=== PATIENT | female | born 1995 | race Asian ===

== ENCOUNTER 2022-12-20 22:45 | Emergency (ER) | payer OTHER, SELFPAY ==
[2022-12-20 23:05] VITALS: BP 126/75; PULSE 85; RESP 16; TEMP 36.6; O2SAT 97; BMI 32.4
--- NOTE | 2022-12-20 23:39 | ED_ITS ---
HPI - Headache General Chief Complaint: Headache Stated Complaint: states cluster headache Time Seen by Provider: 12/20/22 23:35 Source: patient Mode of arrival: Ambulatory Limitations: no limitations History of Present Illness HPI Narrative: Patient otherwise healthy 27-year-old female. She states she does have history of migraines. Her stated complaint here in the emergency department is a cluster headache but she states that it is cluster to the right side of her head but she does have history of migraines. It started earlier today. No fevers. She did take some Tylenol prior to arrival but it did not help her headache much. No extremity numbness or tingling. Related Data Allergies Allergy/AdvReac Type Severity Reaction Status Date / Time No Known Drug Allergies Allergy Unverified 11/18/22 13:59 Review of Systems Constitutional Constitutional: Reports system reviewed and no additional complaints, except as documented Eyes Eyes: Reports system reviewed and no additional complaints, except as documented Musculoskeletal Musculoskeletal: Reports system reviewed and no additional complaints, except as documented Integumentary/Breasts Skin/Breast: Reports system reviewed and no additional complaints, except as documented Neurologic Neurologic: Reports system reviewed and no additional complaints, except as documented Patient History Social History Smoking Status: Never smoker Smoking Status: Never smoker alcohol intake frequency: 0-2 drinks per day Substance Use Type: does not use Exam Initial Vital Signs Initial Vital Signs: Vital Signs Temperature 97.8 F 12/20/22 23:05 Pulse Rate 85 12/20/22 23:05 Respiratory Rate 16 12/20/22 23:05 Blood Pressure 126/75 12/20/22 23:05 Pulse Oximetry 97 12/20/22 23:05 Oxygen Delivery Method Room Air 12/20/22 23:05 Const General: cooperative, comfortable and No ill appearing HENMT Head: normal to inspection and normocephalic Resp Effort & Inspection: normal respiratory effort Cardio Rate: regular rate Skin General: no rashes or lesions noted Neuro General: patient alert, patient awake and moves all extremities Extrem General: capillary refill normal Course Orders Ordered: Discontinued Medications Ibuprofen (Ibuprofen 400 Mg Tablet) 800 mg PO NOW ONE Stop: 12/20/22 23:36 Last Admin: 12/20/22 23:45 Dose: 800 mg Documented By: SHIRA Sumatriptan Succinate (Sumatriptan 6 Mg/0.5 Ml Vial) 6 mg SUBCUT NOW ONE Stop: 12/20/22 23:41 Last Admin: 12/21/22 00:11 Dose: 6 mg Documented By: SHIRA Vital Signs Vital signs: Vital Signs - 8 hr 12/20/22 23:05 Temperature 97.8 F Pulse Rate 85 Respiratory Rate 16 Blood Pressure 126/75 Pulse Oximetry 97 Oxygen Delivery Method Room Air MDM - Headache MDM Narrative Medical decision making narrative: After ibuprofen and Imitrex patient states that her headache went from a 7/10 to a 2/10. No fevers. Low suspicion for intracranial hemorrhage or meningitis.. No indication for any radiologic studies. Will discharge patient home with instructions to follow up with primary provider. Discharge Plan Departure Patient Disposition: Home Clinical Impression: Headache Instructions: DI for Headache Activity Restrictions/Additional Instructions: I recommend that you talk with the [facility] [place] [employer] to help establish a primary care doctor. Return to the emergency department for new sym ptoms. Stand Alone Forms: Patient Portal/API
[2022-12-20] MEDS: IBUPROFEN 400 MG TABLET 800 MG PO (23:45)
[2022-12-21] MEDS: SUMAtriptan 6 MG/0.5 ML VIAL SUBCUT (00:11)
[2022-12-21 00:53] VITALS: BP 124/74; PULSE 78; RESP 16; O2SAT 100
== END 2022-12-21 00:54 | disposition home or self-care (01) ==
PROVIDERS: Emergency Provider Emergency Medicine
DX: R51.9 Headache, unspecified (principal)
CPT/HCPCS: 96372; 99283; J3030

== ENCOUNTER → 2023-03-04 13:50 | Outpatient (CLI) | payer OTHER, SELFPAY ==
[2023-03-04 14:50] LABS: Add Manual Diff / Slide Review NO; Basophils Absolute Auto 0 /uL (0-100); Basophils Percent Auto 0.7 % (0-2); Eosinophils Absolute Auto 100 /uL (0-450); Eosinophils Percent Auto 1.1 % (2-4); Hemoglobin 13.5 g/dL (12.0-16.0); Lymphocytes Absolute Auto 2300 /uL (1100-4500); Mean Corpuscular HGB Conc 34.7 % (30-36); Mean Corpuscular Volume 83.5 fL (80-100); Monocytes Absolute Auto 400 /uL (0-900); Monocytes Percent Auto 6.6 % (3-14); Neutrophils Absolute Auto 3900 /uL (1500-7000); Neutrophils Percent Auto 57.6 % (50-75); Platelet Count 346 X10^3/uL (150-400); Red Blood Cell Count 4.68 X10^6/uL (4.0-5.2); Red Cell Distribution Width 13.2 % (11.6-14.8); White Blood Cell Count 6.7 X10^3/uL (4.5-11.0)
[2023-03-04 15:05] LABS: Alanine Aminotransferase 39 IU/L (<35); Albumin 4.2 g/dL (3.5-5.0); Albumin Globulin Ratio 1.3 (1.0-2.8); Alkaline Phosphatase 65 U/L (38-126); Aspartate Aminotransferase 31 IU/L (14-36); BUN Creatinine Ratio 11.5 (6-22); Bilirubin Total 0.5 mg/dL (0.2-1.3); Blood Urea Nitrogen 7 mg/dL (7-17); Calcium 9.6 mg/dL (8.4-10.2); Carbon Dioxide 30 mmol/L (22-32); Chloride 101 mmol/L (98-107); Cholesterol 169 mg/dL (140-199); Estimated Glomerular Filt Rate > 60 mL/min (>60); Globulin 3.3 g/dL (1.7-4.1); Glucose 96 mg/dL (70-100); HDL Cholesterol 66 mg/dL (40-60); HEMOLYSIS < 15 (0-50); LDL Cholesterol Calculated 86 mg/dL (<100); Potassium 4.1 mmol/L (3.4-5.1); Sodium 137 mmol/L (137-145); Total Protein 7.5 g/dL (6.3-8.2); Triglycerides 84 mg/dL (35-150)
[2023-03-04 15:33] LABS: TSH w/ Reflex to FT4 2.32 uIU/mL (0.47-4.68)
[2023-03-05 08:54] LABS: x Labcorp Estim. Avg Glu (eAG) 120 mg/dL (.); x Labcorp Hemoglobin A1c 5.8 % (4.8-5.6)
== END ==
PROVIDERS: PCP Family Medicine; Referring Provider Family Medicine; Visit Provider Family Medicine
DX: E28.2 Polycystic ovarian syndrome (principal); R73.03 Prediabetes; Z00.00 Encounter for general adult medical examination without abnormal findings
CPT/HCPCS: 36415; 80053; 80061; 83036; 84443; 85025

== ENCOUNTER 2023-05-16 10:19 | Emergency (ER) | payer OTHER, SELFPAY ==
[2023-05-16 10:29] VITALS: BP 126/77; PULSE 96; RESP 18; TEMP 36.6; O2SAT 99; BMI 32.4
--- NOTE | 2023-05-16 11:15 | ED_ITS ---
HPI - Extremity Injury (Upper) <Triston Joseph PA-C - Last Filed: 05/16/23 12:44> General Chief Complaint: Extremity Injury, Upper Stated Complaint: hurt at work/pinched by wheelchair Time Seen by Provider: 05/16/23 11:06 Source: patient Mode of arrival: Ambulatory History of Present Illness HPI narrative: 28-year-old female with past medical history PCOS, migraines, depression presents to the ED status post a right thumb injury sustained at work just prior to arrival. Patient states that she caught her right thumb nail caught in a wheelchair when she was trying to disengage the foot brake. Patient states that she saw some bleeding initially which was controlled with pressure. Patient endorses significant pain in the right thumb. Patient denies numbness, tingling, weakness. Patient endorses full range of motion. Tetanus is up-to-date. Related Data Previous Rx's Medication Instructions Recorded ibuprofen 800 mg tablet 800 mg PO Q8H PRN pain #30 tabs 03/04/23 spironolactone 25 mg tablet 25 mg PO DAILY #30 tabs 03/04/23 ondansetron 4 mg disintegrating 4 mg PO Q8H PRN nausea and 05/07/23 tablet vomiting #20 tabs scopolamine base 1 mg over 3 days 1 patch transdermal Q3D PRN motion 05/07/23 transdermal patch sickness #10 ea sumatriptan succinate 100 mg tablet See Rx Instructions PO .COMPLEX 05/07/23 #20 tabs Allergies Allergy/AdvReac Type Severity Reaction Status Date / Time No Known Drug Allergies Allergy Unverified 05/07/23 11:33 Review of Systems <Triston Joseph PA-C - Last Filed: 05/16/23 12:44> Constitutional Constitutional: Denies chills, Denies fatigue, Denies fever(s), Denies frequent falls, Denies lethargy and Denies weakness Eyes Eyes: Denies change in vision, Denies eye discharge, Denies irritation and Babar es loss of vision ENT Ears, Nose, Mouth, and Throat: Denies change in voice, Denies dizziness, Denies neck pain, Denies sore throat and Denies throat swelling Cardiovascular Cardiovascular: Denies chest pain, Denies irregular heart rhythm, Denies lightheadedness, Denies palpitations, Denies dyspnea, Denies dyspnea on exertion and Denies orthopnea Respiratory Respiratory: Denies cough, Denies dyspnea, Denies dyspnea on exertion and Denies wheezing Gastrointestinal Gastrointestinal: Denies abdominal pain, Denies change in bowel habits, Denies diarrhea, Denies nausea and Denies vomiting Musculoskeletal Musculoskeletal: Denies neck pain and Denies numbness Integumentary/Breasts Skin/Breast: Denies pruritus, Denies erythema, Denies rash and Denies wounds Comments: Right thumbnail injury Neurologic Neurologic: Denies behavioral changes, Denies confusion, Denies dizziness, Denies frequent falls, Denies loss of vision, Denies numbness and Denies weakness Psychiatric Psychiatric: Denies anxiety, Denies behavioral changes, Denies confusion, Denies depression, Denies homicidal ideation and Denies suicidal ideation Endocrine Endocrine: Denies fatigue, Denies flushing and Denies palpitations Hematologic/Lymphatic Hematologic/Lymphatic: Denies easy bruising Allergic/Immunologic Allergic/Immunologic: Denies urticaria, Denies throat swelling and Denies wheezing Patient History <Triston Joseph PA-C - Last Filed: 05/16/23 12:44> Medical History Preventative health care Depression Infertility PCOS (polycystic ovarian syndrome) Migraine headache Family History Father Diabetes mellitus Social History Smoking Status: Never smoker Smoking Status: Never smoker alcohol intake frequency: 0-2 drinks per day Substance Use Type: does not use Exam <Triston Joseph PA-C - Last Filed: 05/16/23 12:44> Narrative Exam Narrative: Const General:?cooperative, healthy appearing and comfortable [facility] Head:?normal to inspection Ears:?hearing grossly normal bilaterally Nose:?external nose normal Face and sinus:?normal facial exam and sinuses nontender Mouth:?oral mucosae normal Throat:?posterior oropharynx normal Eyes General:?appearance normal, both eyes and all related structures Neck Neck:?normal visual inspection and no lymphadenopathy noted Resp Effort & Inspection:?normal respiratory effort Auscultation:?clear to auscultation bilaterally Cardio Rate:?regular rate Rhythm:?regular rhythm Musculoskeletal/integumentary Right thumbnail appears to have been injured with the vertical break to the thumbnail down the middle. No bleeding noted on exam. There is full range of motion. Strength and sensation is intact. Patient is neurovascularly intact. Neuro General:?patient alert, patient awake and patient oriented x3 Initial Vital Signs Initial Vital Signs: Vital Signs Temperature 97.8 F 05/16/23 10:29 Pulse Rate 96 H 05/16/23 10:29 Respiratory Rate 18 05/16/23 10:29 Blood Pressure 126/77 05/16/23 10:29 Pulse Oximetry 99 05/16/23 10:29 Oxygen Delivery Method Room Air 05/16/23 10:29 <Corrina Pruitt DO - Last Filed: 05/20/23 00:38> Initial Vital Signs Initial Vital Signs: Vital Signs Temperature 97.8 F 05/16/23 10:29 Pulse Rate 96 H 05/16/23 10:29 Respiratory Rate 18 05/16/23 10:29 Blood Pressure 126/77 05/16/23 10:29 Pulse Oximetry 99 05/16/23 10:29 Oxygen Delivery Method Room Air 05/16/23 10:29 Course <Triston Joseph PA-C - Last Filed: 05/16/23 12:44> Orders Ordered: Discontinued Medications Ibuprofen (Ibuprofen 400 Mg Tablet) 800 mg PO NOW ONE Stop: 05/16/23 11:22 Last Admin: 05/16/23 11:46 Dose: 800 mg Documented By: NANCIE Vital Signs Vital signs: Vital Signs - 8 hr 05/16/23 10:29 Temperature 97.8 F Pulse Rate 96 H Respiratory Rate 18 Blood Pressure 126/77 Pulse Oximetry 99 Oxygen Delivery Method Room Air <Corrina Pruitt DO - Last Filed: 05/20/23 00:38> Orders Ordered: Discontinued Medications Ibuprofen (Ibuprofen 400 Mg Tablet) 800 mg PO NOW ONE Stop: 05/16/23 11:22 Last Admin: 05/16/23 11:46 Dose: 800 mg Documented By: KF Vital Signs Vital signs: Vital Signs - 8 hr 05/16/23 10:29 Temperature 97.8 F Pulse Rate 96 H Respiratory Rate 18 Blood Pressure 126/77 Pulse Oximetry 99 Oxygen Delivery Method Room Air MDM - Extremity Injury (Upper) <JANICE Lucero Last Filed: 05/16/23 12:44> MDM Narrative Medical decision making narrative: 28-year-old female with past medical history PCOS, migraines, depression pr esents to the ED status post a right thumb injury sustained at work just prior to arrival. Concern for fracture/dislocation versus thumbnail injury versus other. Will obtain x-ray, give ibuprofen for pain. X-ray without acute findings. Supportive care with ibuprofen, bandaging recommended. Recommend follow-up with PCP. ED return precautions discussed with patient. Patient verbalized understanding. Medical records reviewed: Yes Discharge Plan Departure Patient Disposition: Home Clinical Impression: Injury of right thumbnail Qualifiers: Encounter type: initial encounter Qualified Code(s): S69.91XA - Unspecified injury of right wrist, hand and finger(s), initial encounter Instructions: DI for Nail Avulsion Injury Activity Restrictions/Additional Instructions: You were evaluated in the ED today for a thumbnail injury. The x-ray did not show any fractures or dislocations. It appears that you have injured your thumbnail, it will heal as your thumb nail grows out. You may keep the injury bandaged for comfort. Please watch for signs of infection including worsening redness, swelling, discharge, warmth. Return to the ED if you note any signs of infection. Please follow-up with your PCP as soon as possible. You may take ibuprofen or Tylenol for pain. Prescriptions: No Action ibuprofen 800 mg tablet 800 mg PO Q8H PRN (Reason: pain) Qty: 30 1RF spironolactone 25 mg tablet 25 mg PO DAILY Qty: 30 2RF scopolamine base 1 mg over 3 days patch 3 day 1 patch transdermal Q3D PRN (Reason: motion sickness) Qty: 10 0RF ondansetron 4 mg tablet,disintegrating 4 mg PO Q8H PRN (Reason: nausea and vomiting) Qty: 20 1RF sumatriptan succinate 100 mg tablet See Rx Instructions PO .COMPLEX Qty: 20 1RF Rx Instructions: take 1 tab at onset of headache; if no relief, may repeat 1 tab after at least 2 hrs; max = 2 tabs/24 hrs PO Referrals: Rafael Negron DO [Primary Care Provider] - Stand Alone Forms: Patient Portal/API ED Sign-out <Corrina Pruitt DO - Last Filed: 05/20/23 00:38> Cosign ED Attending Beatriceature Attestation: I was immediately available in the department for consultation. Documentation has been reviewed.
--- NOTE | 2023-05-16 11:20 | DI.RAD.S_ITS ---
PROCEDURE: XR FINGER RT MIN 2V INDICATIONS: Thumbnail injury TECHNIQUE: AP hand, 2 views of the 1st finger(s) acquired. COMPARISON: None. FINDINGS: Bones: No fractures or dislocations. No suspicious bony lesions. Soft tissues: No suspicious soft tissue calcifications. IMPRESSION: No acute right thumb fracture or dislocation. Dictated by: Aidan Rodriguez M.D. on 05/16/2023 at 11:41 Approved by: Aidan Rodriguez M.D. on 05/16/2023 at 11:42
[2023-05-16] MEDS: IBUPROFEN 400 MG TABLET 800 MG PO (11:46)
== END 2023-05-16 12:10 | disposition home or self-care (01) ==
PROVIDERS: Emergency Provider Student in an Organized Health Care Education/Training Program; PCP Family Medicine
DX: S69.91XA Unspecified injury of right wrist, hand and finger(s), initial encounter (principal); X58.XXXA Exposure to other specified factors, initial encounter; Y99.0 Civilian activity done for income or pay
CPT/HCPCS: 73140; 99283

== ENCOUNTER → 2023-07-16 15:39 | Outpatient (CLI) | payer OTHER, SELFPAY | PROVIDERS: PCP Family Medicine; Referring Provider Family Medicine; Visit Provider Family Medicine | DX: Z23 Encounter for immunization (principal) | CPT/HCPCS: 90471; 90686 ==

== ENCOUNTER 2023-11-13 02:18 | Emergency (ER) | payer OTHER, SELFPAY ==
[2023-11-13] VITALS (9 sets, daily range): BP systolic 102–141; BP diastolic 58–80; PULSE 86–110; RESP 15–33; TEMP 36.9; O2SAT 95–100; BMI 33.1
--- NOTE | 2023-11-13 02:26 | DI.RAD.S_ITS ---
PROCEDURE: XR CHEST 1V INDICATIONS: PALPITATIONS TECHNIQUE: One view of the chest was acquired. COMPARISON: None. FINDINGS: Surgical changes and devices: None. Lungs and pleura: Lungs are clear. No pleural effusions or pneumothorax. Mediastinum: Mediastinal contours appear normal. Heart size is normal. Bones and chest wall: No suspicious bony lesions. Overlying soft tissues appear unremarkable. IMPRESSION: No acute cardiopulmonary abnormality is seen. This report is concordant with the overnight preliminary interpretation. Dictated by: Santo Briceño M.D. on 11/13/2023 at 8:17 Approved by: Santo Briceño M.D. on 11/13/2023 at 8:17
--- NOTE | 2023-11-13 02:26 | ED.ARRPALP ---
HPI - Arrhythmia/Palpitations General Chief Complaint: Arrhythmia/Palpitations Stated Complaint: fast heart rate Time Seen by Provider: 11/13/23 02:19 History of Present Illness HPI narrative: 28-year-old female presents from work for tachycardia. Patient was at work inset down when she felt her heartbeat quickly. 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 She was told to come down to the ER for evaluation. Patient states that she was intermittently felt palpitations and a fast heart rate for the last year. She has not seen her primary care physician for this issue. Reports briefly feeling short of breath before presenting to the ER, but denies that currently. Denies use of oral contraceptive agents, denies chest pain, leg swelling, history of blood clots. Related Data Previous Rx's Medication Instructions Recorded ibuprofen 800 mg tablet 800 mg PO Q8H PRN pain #30 tabs 03/04/23 spironolactone 25 mg tablet 25 mg PO DAILY #30 tabs 03/04/23 ondansetron 4 mg disintegrating 4 mg PO Q8H PRN nausea and 05/07/23 tablet vomiting #20 tabs scopolamine base 1 mg over 3 days 1 patch transdermal Q3D PRN motion 05/07/23 transdermal patch sickness #10 ea sumatriptan succinate 100 mg tablet See Rx Instructions PO .COMPLEX 05/07/23 #20 tabs Allergies Allergy/AdvReac Type Severity Reaction Status Date / Time No Known Drug Allergies Allergy Unverified 05/07/23 11:33 Review of Systems Review of Systems Narrative: See HPI Patient History Medical History Preventative health care Depression Infertility PCOS (polycystic ovarian syndrome) Migraine headache Family History Father Diabetes mellitus Social History Smoking Status: Never smoker Smoking Status: Never smoker alcohol intake frequency: 0-2 drinks per day Substance Use Type: does not use Exam Initial Vital Signs Initial Vital Signs: Vital Signs Temperature 98.5 F 11/13/23 02:23 Pulse Rate 106 H 11/13/23 02:23 Respiratory Rate 18 11/13/23 02:23 Blood Pressure 141/80 H 11/13/23 02:23 Pulse Oximetry 100 11/13/23 02:23 Oxygen Delivery Method Room Air 11/13/23 02:23 Const: Awake, alert, no acute distress, nontoxic appearing Cardiac: Tachycardia, regular rhythm RESP: unlabored, clear bilaterally, no wheezing GI: Soft, nontender, nondistended, no rebound, no guarding MSK: Atraumatic, full range of motion, pulses equal Skin: Warm, Dry, intact, no rashes Neuro: AO x3, CN II-XII grossly intact, moves all extremities Course Orders Ordered: ED Orders 11/13/23 02:26 Chest [XR chest 1V] Stat EKG-12 Lead Stat 11/13/23 02:33 CBC Auto Diff [Complete Blood Count AUTO DIFF] Stat CMP [Comprehensive Metabolic Panel] Stat TSH [Thyroid Stimulating Hormone] Stat Vital Signs Vital signs: Vital Signs - 8 hr 11/13/23 02:23 11/13/23 02:38 11/13/23 02:45 Temperature 98.5 F Pulse Rate 106 H 110 H 102 H Respiratory Rate 18 28 H 25 H Blood Pressure 141/80 H Pulse Oximetry 100 100 100 Oxygen Delivery Method Room Air 11/13/23 03:00 11/13/23 03:00 11/13/23 03:15 Temperature Pulse Rate 96 H 86 Respiratory Rate 21 15 Blood Pressure 106/59 L Pulse Oximetry 99 100 Oxygen Delivery Method 11/13/23 03:30 11/13/23 03:30 11/13/23 03:45 Temperature Pulse Rate 97 H 98 H Respiratory Rate 16 33 H Blood Pressure 102/58 L Pulse Oximetry 100 95 Oxygen Delivery Method 11/13/23 04:21 Temperature Pulse Rate 96 H Respiratory Rate 16 Blood Pressure 103/72 Pulse Oximetry 98 Oxygen Delivery Method MDM - Arrhythmia/Palpitations Differential Diagnosis Differential diagnosis: Likely palpitations, sinus tachycardia and artial fibrillation Lab Data 11/13/23 02:33 11/13/23 02:33 Labs: Lab Results 11/13/23 Range/Units 02:33 WBC 9.3 (4.5-11.0) X10^3/uL RBC 4.98 (4.0-5.2) X10^6/uL Hgb 14.2 (12.0-16.0) g/dL Hct 41.4 (36-46) % MCV 83.3 (80-100) fL MCH 28.5 (26-34) PG MCHC 34.2 (30-36) % RDW 13.0 (11.6-14.8) % Plt Count 336 (150-400) X10^3/uL Neut % (Auto) 52.5 (50-75) % Lymph % (Auto) 38.2 (25-40) % [place] % (Auto) 7.1 (3-14) % Eos % (Auto) 1.5 L (2-4) % Baso % (Auto) 0.7 (0-2) % Neut # (Auto) 4900 (3529-9056) /uL Lymph # (Auto) 3600 (3516-0246) /uL [place] # (Auto) 700 (0-900) /uL Eos # (Auto) 100 (0-450) /uL Baso # (Auto) 100 (0-100) /uL Sodium 141 (137-145) mmol/L Potassium 3.6 (3.4-5.1) mmol/L Chloride 103 (98-107) mmol/L Carbon Dioxide 30 (22-32) mmol/L BUN 7 (7-17) mg/dL Creatinine 0.71 (0.52-1.04) mg/dL Estimated GFR > 60 (>60) mL/min BUN/Creatinine Ratio 9.9 (6-22) Glucose 130 H (70-100) mg/dL Calcium 9.6 (8.4-10.2) mg/dL Total Bilirubin 0.4 (0.2-1.3) mg/dL AST 29 (14-36) IU/L ALT 33 (<35) IU/L Alkaline Phosphatase 63 (38-126) U/L Total Protein 8.5 H (6.3-8.2) g/dL Albumin 4.8 (3.5-5.0) g/dL Globulin 3.7 (1.7-4.1) g/dL Albumin/Globulin Ratio 1.3 (1.0-2.8) TSH 3.62 (0.47-4.68) uIU/mL ECG Data Interpretation: Sinus tachycardia at 101 beats per minute. Normal axis, no ST T wave changes MDM Narrative Medical decision making narrative: Well-appearing patient with incidentally found sinus tachycardia at work. Patient states that she has had intermittent tachycardia for the last year but has not been evaluated for this condition previously. Currently only complaint is mild lightheadedness. Patient initially 130 beats per minute on monitor car operator, however this quickly decreases to 90-100 beats per minute without any intervention when patient was sitting in ED bed. Laboratory work is reviewed and unremarkable. Electrolytes are within normal limits, TSH within normal limits. Patient's heart rate has remained between 90-100 beats per minute. Blood pressure on lower limits of normal with map 70-75, but blood pressure 100s/70s. Patient informed of all lab and imaging findings, offered to start patient on a low-dose beta-chandler if her tachycardia and palpitations are very bothersome, however I did note that her blood pressure was on the lower limits of normal and starting a beta-chandler may decrease her blood pressure further. Patient stated that she will follow up with her primary care physician and discuss possible options going forward. Discharge Plan Departure Patient Disposition: Home Clinical Impression: Sinus tachycardia Instructions: DI for Palpitations Activity Restrictions/Additional Instructions: When you 1st came in your heart rate was in the 120s, however with rest it dropped into the 90s. Your laboratory work is normal, with normal electrolytes and normal thyroid panel. We discussed possibly starting a heart rate medication, however you decided to follow up with your primary care doctor, which I feel is reasonable. Call your primary care doctor for the next available appointment to potentially discuss either starting a new medication or possibly having a heart monitor placed. Prescriptions: No Action ibuprofen 800 mg tablet 800 mg PO Q8H PRN (Reason: pain) Qty: 30 1RF spironolactone 25 mg tablet 25 mg PO DAILY Qty: 30 2RF scopolamine base 1 mg over 3 days patch 3 day 1 patch transdermal Q3D PRN (Reason: motion sickness) Qty: 10 0RF ondansetron 4 mg tablet,disintegrating 4 mg PO Q8H PRN (Reason: nausea and vomiting) Qty: 20 1RF sumatriptan succinate 100 mg tablet See Rx Instructions PO .COMPLEX Qty: 20 1RF Rx Instructions: take 1 tab at onset of headache; if no relief, may repeat 1 tab after at least 2 hrs; max = 2 tabs/24 hrs PO Referrals: Rafael Negron, [Primary Care Provider] - Stand Alone Forms: Patient Portal/API
[2023-11-13 02:38] LABS: Add Manual Diff / Slide Review NO; Basophils Absolute Auto 100 /uL (0-100); Basophils Percent Auto 0.7 % (0-2); Eosinophils Absolute Auto 100 /uL (0-450); Eosinophils Percent Auto 1.5 % (2-4); Hematocrit 41.4 % (36-46); Hemoglobin 14.2 g/dL (12.0-16.0); Lymphocytes Absolute Auto 3600 /uL (1100-4500); Lymphocytes Percent Auto 38.2 % (25-40); Mean Corpuscular HGB Conc 34.2 % (30-36); Mean Corpuscular Hemoglobin 28.5 PG (26-34); Mean Corpuscular Volume 83.3 fL (80-100); Monocytes Absolute Auto 700 /uL (0-900); Monocytes Percent Auto 7.1 % (3-14); Neutrophils Absolute Auto 4900 /uL (1500-7000); Neutrophils Percent Auto 52.5 % (50-75); Platelet Count 336 X10^3/uL (150-400); Red Blood Cell Count 4.98 X10^6/uL (4.0-5.2); White Blood Cell Count 9.3 X10^3/uL (4.5-11.0)
[2023-11-13 02:50] LABS: Alanine Aminotransferase 33 IU/L (<35); Albumin 4.8 g/dL (3.5-5.0); Albumin Globulin Ratio 1.3 (1.0-2.8); Alkaline Phosphatase 63 U/L (38-126); Aspartate Aminotransferase 29 IU/L (14-36); BUN Creatinine Ratio 9.9 (6-22); Bilirubin Total 0.4 mg/dL (0.2-1.3); Blood Urea Nitrogen 7 mg/dL (7-17); Calcium 9.6 mg/dL (8.4-10.2); Carbon Dioxide 30 mmol/L (22-32); Chloride 103 mmol/L (98-107); Estimated Glomerular Filt Rate > 60 mL/min (>60); Globulin 3.7 g/dL (1.7-4.1); Glucose 130 mg/dL (70-100); HEMOLYSIS < 15 (0-50); Potassium 3.6 mmol/L (3.4-5.1); Sodium 141 mmol/L (137-145); Total Protein 8.5 g/dL (6.3-8.2)
[2023-11-13 03:36] LABS: Thyroid Stimulating Hormone 3.62 uIU/mL (0.47-4.68)
== END 2023-11-13 04:26 | disposition home or self-care (01) ==
PROVIDERS: Emergency Provider Emergency Medicine; PCP Family Medicine
DX: R00.0 Tachycardia, unspecified (principal)
CPT/HCPCS: 36415; 71045; 80053; 84443; 85025; 93005; 99283; 99284

== ENCOUNTER → 2023-12-08 10:24 | Outpatient (CLI) | payer OTHER, SELFPAY ==
--- NOTE | 2023-12-08 10:25 | DI.MRI.S_ITS ---
PROCEDURE: MR HEAD/BRAIN WO CON INDICATIONS: Migraine TECHNIQUE: Noncontrast axial T1 spin echo, axial T2 fast spin echo, sagittal and axial FLAIR, coronal T2 fast spin echo, axial gradient echo, axial diffusion and ADC through the brain. COMPARISON: None. FINDINGS: Image quality: Excellent. CSF Spaces: Basal cisterns are patent. No extra-axial fluid collections. Ventricles are normal in size and shape. Brain: No intracranial masses or hemorrhage. Blue/white matter interface is normal. Brainstem appears normal. Diffusion-weighted images demonstrate no acute infarct. No chronic ischemic insults. Normal intravascular flow voids are present. Skull and face: Calvarium has normal marrow signal. Orbits appear normal. Sinuses: Sinuses and mastoids are clear. IMPRESSION: 1. No acute intracranial process. Dictated by: Ginger Parker M.D. on 12/09/2023 at 15:40 Approved by: Ginger Parker M.D. on 12/09/2023 at 15:40
== END ==
LOC: MRI 10:24
PROVIDERS: PCP Family Medicine; Referring Provider Nurse Practitioner Family; Visit Provider Nurse Practitioner Family
DX: G43.909 Migraine, unspecified, not intractable, without status migrainosus (principal)
CPT/HCPCS: 70551

== ENCOUNTER 2024-02-03 04:46 | Emergency (ER) | payer OTHER, SELFPAY ==
[2024-02-03 04:58] VITALS: BP 126/81; PULSE 95; RESP 16; O2SAT 100; BMI 32.5
[2024-02-03 05:01] VITALS: BP 128/93; PULSE 91; RESP 16; TEMP 36.8; O2SAT 99; BMI 32.5
[2024-02-03 05:48] LABS: Appearance Urine UA CLOUDY; Bilirubin Urine UA NEGATIVE (NEGATIVE); Color Urine UA YELLOW; Glucose Urine UA NEGATIVE (Negative); Ketones Urine UA NEGATIVE (NEGATIVE); Leukocyte Esterase Urine UA 3+ (NEGATIVE); Nitrite Urine UA NEGATIVE (Negative); Occult Blood Urine UA 3+ (Negative); Protein Urine UA NEGATIVE (Negative); Specific Gravity Urine UA <=1.005 (1.000-1.035); Urobilinogen Urine UA 0.2 E.U./dL (0.2)
[2024-02-03 05:51] LABS: pH Urine UA 6.5 (4.5-8.0)
[2024-02-03 05:57] LABS: Bacteria Urine Few (2-10); Culture Indicated Urine Specimen Cultured; RBC Urine 0-1/HPF (0-5/HPF); Squamous Epithelial Cell Urine 0-1 /HPF (0-5/HPF); Urine Volume 10mL (spun); WBC Urine 10-30/HPF (0-5/HPF)
--- NOTE | 2024-02-03 06:03 | ED_ITS ---
HPI - Female Genitourinary General Chief complaint: Urogenital-Male Stated complaint: uti Time Seen by Provider: 02/03/24 04:49 Source: patient Mode of arrival: Ambulatory History of Present Illness HPI Narrative: 29-year-old female presents for urinary frequency and dysuria for 2 days. Took azo yesterday, which briefly helped her symptoms, but overnight her symptoms worsened and she was here for evaluation. Has not had recent urinary tract infection, has not been on antibiotics in the last 30 days. Related Data Previous Rx's Medication Instructions Recorded ibuprofen 800 mg tablet 800 mg PO Q8H PRN pain #30 tabs 03/04/23 spironolactone 25 mg tablet 25 mg PO DAILY #30 tabs 03/04/23 ondansetron 4 mg disintegrating 4 mg PO Q8H PRN nausea and 05/07/23 tablet vomiting #20 tabs scopolamine base 1 mg over 3 days 1 patch transdermal Q3D PRN motion 05/07/23 transdermal patch sickness #10 ea sumatriptan succinate 100 mg tablet See Rx Instructions PO .COMPLEX 05/07/23 #20 tabs cephalexin 500 mg capsule 500 mg PO Q12H #10 caps 02/03/24 Allergies Allergy/AdvReac Type Severity Reaction Status Date / Time No Known Drug Allergies Allergy Unverified 05/07/23 11:33 Patient History Medical History Preventative health care Depression Infertility PCOS (polycystic ovarian syndrome) Migraine headache Family History Father Diabetes mellitus alcohol intake frequency: 0-2 drinks per day Substance Use Type: does not use Exam Initial Vital Signs Initial Vital Signs: Vital Signs Pulse Rate 95 H 02/03/24 04:58 Respiratory Rate 16 02/03/24 04:58 Blood Pressure 126/81 02/03/24 04:58 Pulse Oximetry 100 02/03/24 04:58 Oxygen Delivery Method Room Air 02/03/24 04:58 Const: Awake, alert, no acute distress, nontoxic appearing Skin: Warm, Dry, intact, no rashes Neuro: AO x3, CN II-XII grossly intact, moves all extremities Course Orders Ordered: ED Orders 02/03/24 04:53 Urinalysis and Microscopic Stat Urine Culture Stat Vital Signs Vital signs: Vital Signs - 8 hr 02/03/24 04:58 02/03/24 05:01 02/03/24 06:17 Temperature 98.3 F 98.1 F Pulse Rate 95 H 91 H 78 Respiratory Rate 16 16 20 Blood Pressure 126/81 128/93 H Blood Pressure [Left Arm] 127/69 Pulse Oximetry 100 99 97 Oxygen Delivery Method Room Air Room Air Room Air MDM - Female Genitourinary Lab Data Labs: Lab Results 02/03/24 Range/Units 04:53 Urine Color Yellow Urine Appearance Cloudy Urine pH 6.5 (4.5-8.0) Ur Specific [place] <=1.005 (1.000-1.035) Urine Protein Negative (Negative) Urine Glucose (UA) Negative (Negative) g/dL Urine Ketones Negative (NEGATIVE) Urine Occult Blood 3+ H (Negative) Urine Nitrate Negative (Negative) Urine Bilirubin Negative (NEGATIVE) Urine Urobilinogen 0.2 (0.2) E.U./dL Ur Leukocyte Esterase 3+ H (NEGATIVE) Urine RBC 0-1/hpf (0-5/HPF) Urine WBC 10-30/hpf H (0-5/HPF) Ur Squamous Epith Cells 0-1 /hpf (0-5/HPF) Urine Bacteria Few (2-10) H (None) Ur Culture Indicated? Specimen cultured Vol Urine Centrifuged 10ml (spun) Point of Care Testing Test Results Negative Urine Dip Bedside Urine Glucose Negative Bedside Urine Bilirubin - Negative Bedside Urine Ketone - Negative Urine Specific [place] 1.000 Bedside Urine Occult Blood +++ Bedside Urine pH 6.0 Bedside Urine Protein - Negative Bedside Urine Urobilinogen - Negative Bedside Urine Nitrite - Negative Bedside Urine Leukocytes +++ 500 Esterase MDM Narrative Medical decision making narrative: Urinary tract infection. Antibiotics sent to pharmacy of choice. Discharge Plan Departure Patient Disposition: Home Clinical Impression: UTI (urinary tract infection) Instructions: DI for Urinary Tract Infection (UTI) Activity Restrictions/Additional Instructions: Finish all antibiotics as prescribed. Follow up with your primary care doctor as needed Prescriptions: New cephalexin 500 mg capsule 500 mg PO Q12H Qty: 10 0RF No Action ibuprofen 800 mg tablet 800 mg PO Q8H PRN (Reason: pain) Qty: 30 1RF spironolactone 25 mg tablet 25 mg PO DAILY Qty: 30 2RF scopolamine base 1 mg over 3 days patch 3 day 1 patch transdermal Q3D PRN (Reason: motion sickness) Qty: 10 0RF ondansetron 4 mg tablet,disintegrating 4 mg PO Q8H PRN (Reason: nausea and vomiting) Qty: 20 1RF sumatriptan succinate 100 mg tablet See Rx Instructions PO .COMPLEX Qty: 20 1RF Rx Instructions: take 1 tab at onset of headache; if no relief, may repeat 1 tab after at least 2 hrs; max = 2 tabs/24 hrs PO Referrals: Rafael Negron DO [Primary Care Provider] - Stand Alone Forms: Patient Portal/API
[2024-02-03 06:17] VITALS: BP 127/69; PULSE 78; RESP 20; TEMP 36.7; O2SAT 97
== END 2024-02-03 06:24 | disposition home or self-care (01) ==
PROVIDERS: Emergency Provider Emergency Medicine; PCP Family Medicine
DX: N39.0 Urinary tract infection, site not specified (principal)
CPT/HCPCS: 81001; 81003; 81025; 87077; 87086; 87186; 99282

== ENCOUNTER → 2024-05-20 17:58 | Outpatient (CLI) | payer OTHER, SELFPAY | PROVIDERS: PCP Family Medicine; Referring Provider Internal Medicine; Visit Provider Internal Medicine | DX: Z23 Encounter for immunization (principal) | CPT/HCPCS: 90471; 90656 ==

== ENCOUNTER 2024-08-16 19:23 | Emergency (ER) | payer OTHER, SELFPAY ==
[2024-08-16 19:33] VITALS: BP 123/84; PULSE 85; RESP 17; TEMP 36.3; O2SAT 97; BMI 32.5
--- NOTE | 2024-08-16 22:12 | ED_ITS ---
HPI - Headache General Chief Complaint: Headache Stated Complaint: 8hr headache; hx of headache/migraines Time Seen by Provider: 08/16/24 22:12 Mode of arrival: Ambulatory History of Present Illness HPI Narrative: 29-year-old female with history of recurrent headaches, has taken sumatriptan in the past, left retro-orbital and bifrontal forehead area discomfort, no trauma or injury. Some photophobia with light. No neck pain. No nausea or vomiting. No fevers or chills. No recent illness symptoms. No focal weakness to face arm or leg. No focal numbness to face arm or leg. Related Data Previous Rx's Medication Instructions Recorded ibuprofen 800 mg tablet 800 mg PO Q8H PRN pain #30 tabs 03/04/23 spironolactone 25 mg tablet 25 mg PO DAILY #30 tabs 03/04/23 ondansetron 4 mg disintegrating 4 mg PO Q8H PRN nausea and 05/07/23 tablet vomiting #20 tabs scopolamine base 1 mg over 3 days 1 patch transdermal Q3D PRN motion 05/07/23 transdermal patch sickness #10 ea sumatriptan succinate 100 mg tablet See Rx Instructions PO .COMPLEX 05/07/23 #20 tabs cephalexin 500 mg capsule 500 mg PO Q12H #10 caps 02/03/24 Allergies Allergy/AdvReac Type Severity Reaction Status Date / Time No Known Drug Allergies Allergy Verified 08/16/24 19:33 Patient History Medical History Preventative health care Depression Infertility PCOS (polycystic ovarian syndrome) Migraine headache Family History Father Diabetes mellitus Social History Smoking Status: Never smoker Smoking Status: Never smoker alcohol intake frequency: 0-2 drinks per day Exam Narrative Exam Narrative: GENERAL: Well-developed patient, in mild distress. HEAD: Atraumatic. Normocephalic. EYES: Pupils equal round and reactive. Extraocular motions intact. No scleral icterus. No injection or drainage. ENT: Nose without bleeding, purulent drainage. Throat without erythema, tonsilla r hypertrophy or exudate. Airway patent. NECK: Trachea midline. Non tender CARDIOVASCULAR: Regular rate and rhythm without murmurs, gallops, or rubs. RESPIRATORY: Clear to auscultation. Breath sounds equal bilaterally. No wheezes, rales, or rhonchi. GASTROINTESTINAL: Abdomen soft, non-tender, nondistended. EXTREMITIES: No edema or joint tenderness. BACK: Nontender without deformity or crepitance. No flank tenderness. NEURO: AOx3. Motor functions grossly nonfocal SKIN: No rash or erythema of visible areas Initial Vital Signs Initial Vital Signs: Vital Signs Temperature 97.3 F L 08/16/24 19:33 Pulse Rate 85 08/16/24 19:33 Respiratory Rate 17 08/16/24 19:33 Blood Pressure 123/84 08/16/24 19:33 Pulse Oximetry 97 08/16/24 19:33 Oxygen Delivery Method Room Air 08/16/24 19:33 Course Orders Ordered: Discontinued Medications Ondansetron HCl (Ondansetron 4 Mg Odt) 4 mg SL NOW ONE Stop: 08/16/24 23:15 Last Admin: 08/16/24 23:18 Dose: 4 mg Documented By: Sumatriptan Succinate (Sumatriptan 6 Mg/0.5 Ml Vial) 6 mg SUBCUT NOW ONE Stop: 08/16/24 22:23 Last Admin: 08/16/24 22:37 Dose: 6 mg Documented By: SB Vital Signs Vital signs: Vital Signs - 8 hr 08/16/24 19:33 08/16/24 23:10 08/16/24 23:11 Temperature 97.3 F L Pulse Rate 85 99 H Respiratory Rate 17 Blood Pressure 123/84 118/76 Pulse Oximetry 97 99 Oxygen Delivery Method Room Air 08/16/24 23:11 08/16/24 23:30 08/16/24 23:30 Temperature Pulse Rate 79 75 Respiratory Rate Blood Pressure 102/71 Pulse Oximetry 98 97 Oxygen Delivery Method Room Air 08/17/24 00:36 Temperature Pulse Rate 70 Respiratory Rate 14 Blood Pressure 115/68 Pulse Oximetry 99 Oxygen Delivery Method Room Air MDM - Headache MDM Narrative Medical decision making narrative: 29-year-old female with history of recurrent headaches, left-sided and bifrontal, she would run out of her oral sumatriptan. She was amenable to injectable sumatriptan here, ordered. We will observe for response to therapy. Patient having improved symptoms, will further observe Patient had resolution of symptoms, ambulatory in the emergency department, will discharge home. She states that she has access to refill of her oral sumatriptan and will pickup a refill from pharmacy. She has a ride home with her . Discharged home, stable, improved Discharge Plan Departure Patient Disposition: Home Clinical Impression: Migraine headache Activity Restrictions/Additional Instructions: History of recurrent migraine headaches, recently running out of oral sumatriptan medication. Injectable form of sumatriptan was given today for your headache, which improved and then resolve with the headache. You stated that you had access to the oral sumatriptan for refills. Refill the sumatriptan medication and use as needed. Follow up with your primary care provider or your neurologists for over is helping you with your outpatient management of recurrent headaches. Return earlier to this/nearest emergency department for any change worsening symptoms or any concerns prior Prescriptions: No Action ibuprofen 800 mg tablet 800 mg PO Q8H PRN (Reason: pain) Qty: 30 1RF spironolactone 25 mg tablet 25 mg PO DAILY Qty: 30 2RF scopolamine base 1 mg over 3 days patch 3 day 1 patch transdermal Q3D PRN (Reason: motion sickness) Qty: 10 0RF ondansetron 4 mg tablet,disintegrating 4 mg PO Q8H PRN (Reason: nausea and vomiting) Qty: 20 1RF sumatriptan succinate 100 mg tablet See Rx Instructions PO .COMPLEX Qty: 20 1RF Rx Instructions: take 1 tab at onset of headache; if no relief, may repeat 1 tab after at least 2 hrs; max = 2 tabs/24 hrs PO cephalexin 500 mg capsule 500 mg PO Q12H Qty: 10 0RF Referrals: Rafael Negron DO [Primary Care Provider] - Stand Alone Forms: Patient Portal/API/Survey
[2024-08-16] MEDS: SUMAtriptan 6 MG/0.5 ML VIAL SUBCUT (22:37)
[2024-08-16 23:10] VITALS: PULSE 99; O2SAT 99
[2024-08-16 23:11] VITALS: BP 118/76; PULSE 79; O2SAT 98
[2024-08-16] MEDS: ONDANSETRON 4 MG ODT SL (23:18)
[2024-08-16 23:30] VITALS: BP 102/71; PULSE 75; O2SAT 97
[2024-08-17 00:36] VITALS: BP 115/68; PULSE 70; RESP 14; O2SAT 99
== END 2024-08-17 00:40 | disposition home or self-care (01) ==
PROVIDERS: Emergency Provider Emergency Medicine; PCP Family Medicine
DX: G43.909 Migraine, unspecified, not intractable, without status migrainosus (principal); H53.149 Visual discomfort, unspecified
CPT/HCPCS: 96372; 99283; J3030